=== PATIENT | female | born 1950 | race Caucasian/White ===

== ENCOUNTER 2019-06-09 05:14 | Day surgery (SDC) | payer MEDICARE ==
[~2019-06-09] VITALS: Ht 175.3 cm; Wt 65.6 kg
[2019-06-09] VITALS (10 sets, daily range): BP systolic 119–160; BP diastolic 71–92
[2019-06-09] MEDS ORDERED: METH2.5T PO (05:24)
[2019-06-09] MEDS ORDERED: LISI-600 PO (05:24)
[2019-06-09] MEDS ORDERED: ATOR20TA PO (05:25)
[2019-06-09] MEDS ORDERED: METO25PO2 PO (05:26)
[2019-06-09] MEDS ORDERED: ASPI81TA52 PO (05:27)
[2019-06-09] MEDS ORDERED: LIDOcaine 1% (10mg/ml)w/preservative injection 20ml MDV ONE (05:28)
[2019-06-09] MEDS ORDERED: iohexol 350MG/ML 100ml bottle IV ONE ×2 (05:28→06:33)
[2019-06-09] MEDS ORDERED: NITR0.4T SL (05:28)
[2019-06-09] MEDS ORDERED: fentaNYL/PF 50MCG/1 ML 2ML syringe ONE (05:28)
[2019-06-09] MEDS ORDERED: midazolam 2 mg/2 ml injection ONE (05:28)
[2019-06-09] MEDS ORDERED: verapamil 2.5 mg/ml inj IV ONE (05:42)
[2019-06-09] MEDS ORDERED: heparin 1,000unit/ml 10ml vial 10 ML ONE (05:42)
[2019-06-09] MEDS ORDERED: nitroGLYCERIN-Tridil 50MG/D5W 250 ML IV ONE (05:42)
[2019-06-09] MEDS ORDERED: normal saline 1,000 ML IV SCH (05:50)
[2019-06-09] MEDS ORDERED: LORazepam 0.5 MG tablet PO PRN (05:50)
[2019-06-09] MEDS ORDERED: diphenhydrAMINE 25mg capsule PO PRN (05:50)
[2019-06-09] MEDS ORDERED: diphenhydrAMINE 50 mg/ml inj ONE (06:44)
[2019-06-09] MEDS ORDERED: ticagrelor 90mg tablet ONE (06:54)
== END 2019-06-09 11:00 | disposition home or self-care (01) ==
LOC: SSTAY O 05:14
PROVIDERS: ATTEND Internal Medicine Interventional Cardiology
DX: I25.10 Atherosclerotic heart disease of native coronary artery without angina pectoris (principal); M19.90 Unspecified osteoarthritis, unspecified site; I10 Essential (primary) hypertension; E78.5 Hyperlipidemia, unspecified; Z79.899 Other long term (current) drug therapy; Z87.891 Personal history of nicotine dependence; I08.0 Rheumatic disorders of both mitral and aortic valves
CPT/HCPCS: 93458; 99152; 99153; C1725; C1769; C1874; C1894; C9600; J1200; J1644; J2001; J2250; J3010; J7030; Q0163; Q9967; A4620; A6258; J3490

== ENCOUNTER 2025-07-17 11:02 | Day surgery (SDC) | payer MEDICARE ==
[2025-07-17] VITALS (10 sets, daily range): BP systolic 115–170; BP diastolic 63–83; PULSE 61–84; RESP 12–21; TEMP 97.7; O2SAT 95–99
[~2025-07-17] VITALS: Ht 172.7 cm; Wt 66.9 kg
[~2025-07-17 11:02] MED LIST: ASPI81TA52 PO; ATOR20TA PO; LISI20TA28 PO; METH2.5T PO; METO25PO2 PO; NITR0.4T SL
[2025-07-17] MEDS ORDERED: NITR0.4T51 SL (11:50)
[2025-07-17] MEDS ORDERED: LEVO50TA8 PO (11:50)
[2025-07-17] MEDS ORDERED: LOSA50TA64 PO (11:50)
[2025-07-17] MEDS ORDERED: ISOS10TA94 PO (11:50)
[2025-07-17] MEDS ORDERED: EVOL140P3 SQ (11:50)
[2025-07-17] MEDS ORDERED: HYDR12.55 PO (11:50)
[2025-07-17] MEDS ORDERED: METO-395 PO (11:50)
--- NOTE | 2025-07-17 11:50 | ELECTROCARDIOGRAPH REPORT ---
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 CARLOS Camarena Measurements Intervals [place] Rate: 60 P: 15 HI: 203 QRS: -45 QRSD: 105 T: -22 QT: 430 QTc: 430 Interpretive Statements Sinus rhythm Left anterior fascicular block Abnormal R-wave progression, late transition Probable left ventricular hypertrophy Nonspecific T abnormalities, lateral leads Electronically Signed On 07-17-2025 13:23:[address] CARLOS Camarena Please click the below link to view image of tracing.
[2025-07-17 12:04] LABS: MEAN PLATELET VOLUME 8.0 FL (7.4-10.4); RED CELL DISTRIBUTION WIDTH 13.2 % (11.5-14.5)
[2025-07-17 12:11] LABS: CREATININE 0.93 MG/DL (0.40-0.90); TOTAL CARBON DIOXIDE 25.3 MMOL/L (24-32); eCRCL 52 ML/MIN; eGFR 59 ML/MIN
[2025-07-17 12:14] LABS: APTT 28 SECONDS (22-32); INR 1.0 INR
[2025-07-17] MEDS ORDERED: LIDOcaine 1% (10mg/ml) 2ml vial ONE (13:30)
[2025-07-17] MEDS ORDERED: fentaNYL/PF 50MCG/1 ML 2ML syringe ONE (13:30)
[2025-07-17] MEDS ORDERED: midazolam 1 mg/ML 2ml injection ONE ×2 (13:30→14:02)
[2025-07-17] MEDS ORDERED: verapamil 2.5 mg/ml inj IV ONE (13:30)
[2025-07-17] MEDS ORDERED: heparin 1,000unit/ml 10ml vial 10 ML ONE (13:30)
[2025-07-17] MEDS ORDERED: nitroGLYCERIN 500mcg/5mL D5W 5 ML IV ONE (13:34)
[2025-07-17] MEDS ORDERED: LIDOcaine 1% 30ml preserv. free vial ONE (14:05)
[2025-07-17] MEDS ORDERED: hydrALAZINE 20mg/ml inj. ONE (14:23)
[2025-07-17] MEDS ORDERED: ondansetron/PF 4mg/2ml inj IV PRN (15:00)
[2025-07-17] MEDS ORDERED: HYDROcodone/acetaminophen 10/325mg tab PO PRN (15:00)
[2025-07-17] MEDS ORDERED: OXAZEpam 15mg capsule PO PRN (15:00)
[2025-07-17] MEDS ORDERED: HYDROcodone/acetaminophen 5mg/325mg tablet PO PRN (15:00)
--- NOTE | 2025-08-11 09:50 | CARDIOLOGY REPORT ---
DATE OF SERVICE: 07/17/2025 DICTATING PHYSICIAN: Carolina Marinelli MD CARDIAC CATHETERIZATION REPORT DATE OF PROCEDURE: 07/17/2025 PROCEDURES: * Left heart catheterization. * Selective coronary angiography. * Left ventriculography. * Conscious sedation monitoring time for 30 minutes. INDICATION: Continued chest pain. PHYSICIAN: Gasper Marinelli MD DESCRIPTION OF PROCEDURE: After informed consent was obtained, the patient was brought to the lab where she was prepped and draped in the usual sterile fashion. After adequate anesthesia was obtained using 1% lidocaine to the right groin, a 6-Fijian sheath was inserted into the right femoral artery. Thereafter, using a JL4 followed by a JR4 catheter, selective coronary angiography was performed. Next, using a pigtail catheter, the catheter was advanced over a 0.035 wire into the left ventricle and left ventriculography was performed. Hemostasis was obtained using manual pressure. HEMODYNAMICS: For the patient's hemodynamics, please refer to the event log. Left ventricular end diastolic pressure was 16 mmHg. FINDINGS: The left main coronary artery is a medium caliber vessel free of significant disease. The left anterior descending coronary artery has a previously deployed stent in the proximal LAD that is widely patent. The circumflex coronary artery is a medium caliber vessel with mild luminal irregularities. The right coronary artery is a medium caliber dominant vessel with mild luminal irregularities. Left ventriculography revealed appearance of normal left ventricular function. IMPRESSION: * Patent proximal LAD stent. * Mild luminal irregularities of the circumflex and RCA. * Normal left ventricular function. Left ventricular end diastolic pressure was 16 mmHg. Carolina Marinelli MD TID: [id number] RECEIPT: [id number] DIVINA/SOFIA
== END 2025-07-17 17:45 | disposition home or self-care (01) ==
LOC: SSTAY O 11:02
PROVIDERS: ATTEND Student in an Organized Health Care Education/Training Program
DX: R07.9 Chest pain, unspecified (principal); I44.4 Left anterior fascicular block; I25.119 Atherosclerotic heart disease of native coronary artery with unspecified angina pectoris; I10 Essential (primary) hypertension; E78.00 Pure hypercholesterolemia, unspecified; E03.9 Hypothyroidism, unspecified; Z79.890 Hormone replacement therapy; Z79.899 Other long term (current) drug therapy; Z95.5 Presence of coronary angioplasty implant and graft; Z88.8 Allergy status to other drugs, medicaments and biological substances
CPT/HCPCS: 36415; 80048; 85025; 85610; 85730; 93005; 93458; 99152; 99153; A6258; C1751; C1760; C1894; J0360; J1644; J2003; J2250; J3010; J3490; J7030; Q0163; Q9967; Z7610